=== PATIENT | female | born 2005 | race African-American/Black ===

== ENCOUNTER 2025-03-02 17:03 | Emergency (ER) | payer OTHER ==
[~2025-03-02] VITALS: Ht 147.3 cm; Wt 60.7 kg
[2025-03-02 17:31] LABS: KETONE, URINE AUTO RFX NEGATIVE (NEGATIVE); LEUKOCYTE ESTERASE UR AUTO RFX NEGATIVE (NEGATIVE); NITRITE, URINE AUTO RFX NEGATIVE (NEGATIVE); RBC, URINE AUTO RFX 1 /HPF (0-3); SQUAM EPITHELIAL CELL UR AURFX 10 /HPF (0-6); WBC, URINE AUTO RFX 0 /HPF (0-3)
[2025-03-02 19:07] LABS: Trichomonas vaginalis (AMP) NOT DETECTED (NEGATIVE)
[2025-03-02 19:31] LABS: GC DNA AMPLIFICATION NEGATIVE (NEGATIVE)
[2025-03-02 20:10] VITALS: BP 8/62; TEMP 98; O2SAT 100
== END 2025-03-02 20:26 | disposition home or self-care (01) ==
LOC: M ED 18:40
DX: R30.0 Dysuria (principal)